=== PATIENT | female | born 1990 | race Caucasian/White ===

== ENCOUNTER → 2018-09-07 | Outpatient (CLI) | payer OTHER | LOC: FIMAGING 19:15 | DX: S32.302A Unspecified fracture of left ilium, initial encounter for closed fracture (principal) ==

== ENCOUNTER → 2018-09-15 | Outpatient (CLI) | payer OTHER | LOC: FIMAGING 19:21 | DX: M53.0 Cervicocranial syndrome (principal); M25.551 Pain in right hip; M50.122 Cervical disc disorder at C5-C6 level with radiculopathy ==

== ENCOUNTER → 2019-01-21 | Outpatient (CLI) | payer OTHER | LOC: FIMAGING 19:36 | PROVIDERS: ATTEND Internal Medicine | DX: O99.89 Other specified diseases and conditions complicating pregnancy, childbirth and the puerperium (principal); M53.3 Sacrococcygeal disorders, not elsewhere classified; Z3A.12 12 weeks gestation of pregnancy ==